=== PATIENT | female | born 1930 | race Caucasian/White ===

== ENCOUNTER 2017-01-05 09:22 | Emergency (ER) | payer MEDICARE ==
--- NOTE | 2017-01-05 09:54 | ERPHSYRPT ---
- History of Present Illness Time Seen by Provider: 01/05/17 09:47 Source: patient Exam Limitations: no limitations Patient Subjective Stated Complaint: FELL TWO DAYS AGO ONTO THE FLOOR INJURING RIGHT HIP Triage Nursing Assessment: PATIENT ASSISTED FROM CAR TO W/C. UNABLE TO BEAR WEIGHT ON RIGHT HIP. SLIGHT ROTATION OF RIGHT LEG NOTED. RIGHT FOOT SWOLLEN, STATES FOOT WAS SWOLLEN BEFORE FALL AND THERE IS NO CHANGE TO FOOT. Physician History: The patient is an 86-year-old female with her daughter complaining of falling 2 days ago and injuring her right hip. She thought she had only bruised it. She is not able to bear weight on it. Approximately 20 years ago she had a right hip replacement. Her past medical history is significant for [place] 2, hypertension, hypothyroidism, right hip replacement, appendectomy, hysterectomy , cholecystectomy. Occurred: days ago (2) Reason for Fall: lost balance, fell from standing pos Injuries/Pain Location: lower extremity (right hip) Loss of Consciousness: no loss of consciousness Quality: sharpness Severity of Pain-Max: severe Severity of Pain-Current: severe Modifying Factors: Improves With: nothing Associated Symptoms (Fall): denies symptoms Allergies/Adverse Reactions: No Known Drug Allergies Allergy (Verified 01/05/17 09:31) Home Medications: Aciphex 20 mg PO DAILY 06/04/12 [History] Alprazolam 0.5 mg 0.5 mg PO TID PRN 06/04/12 [History] Furosemide 20 mg PO BID 06/04/12 [History] Hydrocodon-Acetaminophn 10-325 1 tab PO Q6HPRN PRN 06/04/12 [History] Levothyroxine Sodium 137 mcg PO DAILY 06/04/12 [History] Propranolol HCl 40 mg PO DAILY 06/04/12 [History] Sertraline HCl 100 mg PO DAILY 06/04/12 [History] Trazodone HCl 150 mg 150 mg PO HS 06/04/12 [History] Hx Tetanus, Diphtheria Vaccination/Date Given: No Hx Influenza Vaccination/Date Given: Yes Hx Pneumococcal Vaccination/Date Given: Yes - Review of Systems Constitutional: No Fever, No Chills Eyes: No Symptoms Ears, Nose, & Throat: No Symptoms Respiratory: No Cough, No Dyspnea Cardiac: No Chest Pain, No Edema, No Syncope Abdominal/Gastrointestinal: No Abdominal Pain, No Nausea, No Vomiting, No Diarrhea Genitourinary Symptoms: No Dysuria Musculoskeletal: Fall, Injury, Joint Pain Skin: No Rash Neurological: No Dizziness, No Focal Weakness, No Sensory Changes Psychological: No Symptoms Endocrine: No Symptoms Hematologic/Lymphatic: No Symptoms Immunological/Allergic: No Symptoms All Other Systems: Reviewed and Negative - Past Medical History Pertinent Past Medical History: Yes Neurological History: Other ENT History: Cataracts Cardiac History: Congestive Heart Failure, Myocardial Infarction ([place]) Respiratory History: No Pertinent History Endocrine Medical History: Hypothyroidism Musculoskeletal History: Osteoarthritis GI Medical History: GERD, Irritable Bowel History: No Pertinent History Psycho-Social History: Anxiety, Depression Female Reproductive Disorders: No Pertinent History Other Medical History: temors, - Past Surgical History Past Surgical History: Yes Neuro Surgical History: No Pertinent History Cardiac: No Pertinent History Respiratory: No Pertinent History Gastrointestinal: Appendectomy, Cholecystectomy Genitourinary: No Pertinent History Musculoskeletal: Orthopedic Surgery Female Surgical History: Hysterectomy Other Surgical History: RIGHT HIP "GLUED" - Social History Smoking Status: Current every day smoker How long have you smoked: MANY YEARS Exposure to second hand smoke: No Drug Use: none Patient Lives Alone: Yes Significant Family History: heart disease, hypertension - Female History Hx Now: No - Nursing Vital Signs Nursing Vital Signs: Initial Vital Signs Temperature 97.6 F Temperature Source Oral Pulse Rate 85 Respiratory Rate 16 Blood Pressure [] 108/64 Pain Intensity 9 - Mike Coma Score Best Eye Response (Mike): (4) open spontaneously Best Verbal Response ([place]): (5) oriented Best Motor Response (Mike): (6) obeys commands [place] Total: 15 - Physical Exam General Appearance: severe distress (when moving right hip) Head Injury: no evidence of injury Eye Exam: PERRL/EOMI ENT Exam: airway nml Neck Exam: normal inspection, No tenderness Respiratory/Chest Exam: normal breath sounds, No chest tenderness, No respiratory distress Cardiovascular Exam: normal heart sounds, regular rate/rhythm Gastrointestinal Exam: soft, No tenderness, No distention, No guarding, No ecchymosis Rectal Exam: not done Back Exam: normal inspection, No vertebral tenderness Extremity Exam: normal range of motion, pelvis stable, limited range of motion, evidence of injury, hip tenderness, other (Examination of the right hip reveals exquisite tenderness to any slight movement of the hip joint. Palpation of the right hip also reveals exquisite tenderness. No bruising is obvious at this time.), No deformities Neurologic Exam: alert, oriented x 3, cooperative, sensation nml, No motor deficits Skin Exam: normal color, warm, dry SpO2 Interpretation: normal SpO2: 91 Oxygen Delivery: Room Air - Radiology Exams Right Hip X-ray Interpretation: Interpreted by me, Displaced Fracture (proximal right femur fx at midline of hip replacement hardware.) Ordered Tests: Active Orders 24 hr Category Date Time Status IV Insertion STAT Care 01/05/17 09:58 Active HIP UNI (2V) INCL PEL IF DONE Stat Exams 01/05/17 09:58 Taken Medication Summary Discontinued Medications Generic Name Dose Route Start Last Admin Trade Name Freq PRN Reason Stop Dose Admin Morphine Sulfate 4 mg 01/05/17 09:58 01/05/17 10:06 Morphine Sulfate 4 Mg Inj IV 01/05/17 09:59 4 mg STAT ONE Administration Morphine Sulfate Confirm 01/05/17 10:03 Morphine Sulfate 4 Mg Inj Administered 01/05/17 10:04 Dose 4 mg .ROUTE .STK-MED ONE Ondansetron HCl 4 mg 01/05/17 09:58 01/05/17 10:06 Zofran 4 Mg/2 Ml Vial IV 01/05/17 09:59 4 mg STAT ONE Administration Ondansetron HCl Confirm 01/05/17 10:02 Zofran 4 Mg/2 Ml Vial Administered 01/05/17 10:03 Dose 4 mg .ROUTE .STK-MED ONE - Progress Progress: unchanged, improved Counseled pt/family regarding: diagnosis, rad results - Departure Time of Disposition: 10:57 Departure Disposition: Transfer (transfer to [facility] ER per Dr Calderon) Clinical Impression: Femur fracture, right Condition: Stable Critical Care Time: No Additional Instructions: You have a fracture in your proximal right femur at the site of the hardware from a previous hip replacement. You are being transferred to [facility] ER to see Dr. Calderon
[2017-01-05] MEDS ORDERED: Zofran 4 MG/2 ML VIAL IV ONE (09:58)
[2017-01-05] MEDS ORDERED: MORPHINE SULFATE 4 MG INJ IV ONE (09:58)
[2017-01-05] MEDS ORDERED: Zofran 4 MG/2 ML VIAL ONE (10:02)
[2017-01-05] MEDS ORDERED: MORPHINE SULFATE 4 MG INJ ONE (10:03)
[2017-01-05 11:55] VITALS: O2SAT 100
[2017-01-05 12:29] VITALS: BP 100/59; PULSE 73
--- NOTE | 2017-01-05 20:50 | XRAY ---
Indication: Right hip pain following fall. 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
== END 2017-01-05 12:35 | disposition short-term general hospital (02) ==
LOC: ED 09:22
DX: S72.91XA Unspecified fracture of right femur, initial encounter for closed fracture (principal); W01.0XXA Fall on same level from slipping, tripping and stumbling without subsequent striking against object, initial encounter; M25.551 Pain in right hip; Z79.899 Other long term (current) drug therapy
CPT/HCPCS: 36000; 73502; 96374; 96375; 99285; J2270; J2405